=== PATIENT | male | born 2000 | race Two or more races ===

== ENCOUNTER 2025-01-30 14:04 | Emergency (ER) | payer OTHER ==
[~2025-01-30] VITALS: Ht 170.2 cm; Wt 74.8 kg
[2025-01-30 16:43] LABS: BASO % 0.5 % (0.1-1.2); EOS # 0.14 (0.04-0.54); EOS % 3.3 % (0.7-7.0); HEMATOCRIT 43.9 % (40.1-51.0); HEMOGLOBIN 15.2 g/dL (13.7-17.5); LYMPH # 1.26 (1.18-3.74); LYMPH % 30.1 % (19.3-53.1); MEAN CORPUSCULAR HEMOGLOBIN 29.6 pg (25.6-32.2); MONO # 0.43 (0.24-0.82); MONO % 10.3 % (4.7-12.5); NEUT # 2.33 (1.56-6.13); NEUT % 55.8 % (34.0-71.1); PLATELET COUNT 164 K/uL (163-369); RED BLOOD COUNT 5.13 M/uL (4.63-6.08); RED CELL DISTRIBUTION WIDTH 12.1 % (11.6-14.4)
[2025-01-30 17:24] LABS: ALBUMIN 4.2 gm/dL (3.4-5.0); BILIRUBIN TOTAL 0.84 mg/dL (0.3-1.2); CALCIUM 9.6 mg/dL (8.5-10.1); GFR 91.8; GLOBULINA 3.4 G/DL (2.4-3.5); POTASSIUM 4.55 mEq/L (3.5-5.1); TOTAL PROTEIN 7.6 gm/dL (6.4-8.2)
== END 2025-01-30 18:43 | disposition home or self-care (01) ==
LOC: ER 14:04
PROVIDERS: Preventive Medicine Public Health & General Preventive Medicine
DX: R51.9 Headache, unspecified (principal); R53.81 Other malaise